=== PATIENT | female | born 1990 | race Caucasian/White ===

== ENCOUNTER 2017-09-23 11:35 | Emergency (ER) | payer BC | END 2017-09-23 14:32 | disposition left against medical advice (07) | LOC: UCCORT 11:35 | DX: H57.12 Ocular pain, left eye (principal); Z53.21 Procedure and treatment not carried out due to patient leaving prior to being seen by health care provider ==

== ENCOUNTER 2017-11-26 09:40 | Emergency (ER) | payer BC ==
[2017-11-26 10:04] VITALS: BP 151/92
--- NOTE | 2017-11-26 10:39 | RAD ---
HISTORY: Worsening left foot pain COMPARISONS: None VIEWS: 3, Frontal, lateral, and oblique views of the left foot FINDINGS: BONE DENSITY: Normal. BONES: There is no displaced fracture. There is a small calcaneal enthesophyte. There is no appreciable erosion or periosteal reaction. JOINTS: There is no arthropathy. ALIGNMENT: There is no dislocation. SOFT TISSUES: Unremarkable. OTHER FINDINGS: None. IMPRESSION: NO ACUTE OSSEOUS INJURY. IF SYMPTOMS PERSIST, RECOMMEND REPEAT IMAGING.
--- NOTE | 2017-11-26 10:39 | UC ---
Lower Extremity/Ankle HPI - HPI Summary HPI Summary: Pt c/e left foot pain that has been worsening over the last 7 days. 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 Pain radiates from left great toe to anterior knee. - History of Current Complaint Chief Complaint: UCGeneralIllness Stated Complaint: LEFT FOOT Time Seen by Provider: 11/26/17 10:08 Hx Obtained From: Patient Hx Last Menstrual Period: 11/16/17 ?: No Onset/Duration: Gradual Onset, Lasting Days, Worse Since - onset Severity Initially: Mild Severity Currently: Mild Pain Intensity: 3 Aggravating Factor(s): Standing, Ambulation Alleviating Factor(s): Rest Able to Bear Weight: Yes - Risk Factors Gout Risk Factors: Negative DVT Risk Factors: Negative Septic Arthritis Risk Factor: Negative - Allergies/Home Medications Allergies/Adverse Reactions: Allergies Allergy/AdvReac Type Severity Reaction Status Date / Time Penicillins Allergy Intermediate Hives Verified 11/26/17 10:04 Home Medications: Home Medications B-Complex with Vitamin C [Vitamin B-Complex with Vit C] 1 each PO DAILY [History Confirmed 11/26/17] PMH/Surg Hx/FS Hx/Imm Hx Previously Healthy: Yes - Surgical History Surgical History: None - Family History Known Family History: Positive: Cardiac Disease - Social History Occupation: Employed Full-time Lives: With Family Alcohol Use: None Substance Use Type: None Smoking Status (MU): Never Smoked Tobacco Have You Smoked in the Last Year: No - Immunization History Most Recent Influenza Vaccination: Fall 2013 Review of Systems Constitutional: Negative Skin: Negative Eyes: Negative ENT: Negative Respiratory: Negative Cardiovascular: Negative Gastrointestinal: Negative Genitourinary: Negative Motor: Negative Neurovascular: Negative Musculoskeletal: Myalgia - left foot and lower extremity Neurological: Negative Psychological: Negative Is Patient Immunocompromised?: No All Other Systems Reviewed And Are Negative: Yes Physical Exam Triage Information Reviewed: Yes Appearance: Well-Appearing Vital Signs: Initial Vital Signs Temp 98.7 F 11/26/17 09:59 Pulse 100 11/26/17 09:59 Resp 20 11/26/17 09:59 BP 151/92 11/26/17 09:59 Pulse Ox 99 11/26/17 09:59 Vital Signs Reviewed: Yes Eye Exam: Normal Eyes: Positive: Other: - pt is legally blind, has double pupils ENT: Positive: Hearing grossly normal Neck exam: Normal Respiratory Exam: Normal Musculoskeletal Exam: Normal Musculoskeletal: Positive: Other: - tenderness at left great toe joint Neurological Exam: Normal Psychological Exam: Normal Skin Exam: Normal Diagnostics - Radiology No standard instances Radiology Interpretation Completed By: Radiologist - FINDINGS: BONE DENSITY: Normal. BONES: There is no displaced fracture. There is a small calcaneal enthesophyte. There is no appreciable erosion or periosteal reaction. JOINTS: There is no arthropathy. ALIGNMENT: There is no dislocation. SOFT TISSUES: Unremarkable. OTHER FINDINGS: None. IMPRESSION: NO ACUTE OSSEOUS INJURY. IF SYMPTOMS PERSIST, RECOMMEND REPEAT IMAGING. Lower Extremity Course/Dx - Course Course Of Treatment: FINDINGS: BONE DENSITY: Normal. BONES: There is no displaced fracture. There is a small calcaneal enthesophyte. There is. no appreciable erosion or periosteal reaction. JOINTS: There is no arthropathy. ALIGNMENT: There is no dislocation. SOFT TISSUES: Unremarkable. OTHER FINDINGS : None. IMPRESSION: NO ACUTE OSSEOUS INJURY. IF SYMPTOMS PERSIST, RECOMMEND REPEAT IMAGING. - Differential Dx/Diagnosis Differential Diagnosis/HQI/PQRI: Sprain, Strain, Tendonitis Provider Diagnoses: left foot strain. left foot tendonitis Discharge - Sign-Out/Discharge Documenting (check all that apply): Discharge - Discharge Plan Condition: Stable Disposition: HOME Patient Education Materials: Tendinitis (ED), R.I.C.E. Treatment (ED) Referrals: Fang Messina PA [Primary Care Provider] - If Needed Savage Romero MD [Medical Doctor] - If Needed - Billing Disposition and Condition Condition: STABLE Disposition: HOME
== END 2017-11-26 10:53 | disposition home or self-care (01) ==
LOC: UCCORT 09:40
DX: S96.912A Strain of unspecified muscle and tendon at ankle and foot level, left foot, initial encounter (principal); X50.3XXA Overexertion from repetitive movements, initial encounter; Y93.75 Activity, martial arts; Y92.9 Unspecified place or not applicable; M77.52 Other enthesopathy of left foot and ankle; Z88.0 Allergy status to penicillin
CPT/HCPCS: 99211; G0463

== ENCOUNTER 2018-02-13 15:49 | Emergency (ER) | payer BC ==
[2018-02-13 16:16] VITALS: BP 115/74
--- NOTE | 2018-02-13 16:45 | UC ---
Ear Complaint HPI - HPI Summary HPI Summary: right ear feels congested and needs to "pop". has been using dimetapp with out relief----(cannot use flonase---or nasal sprays) - History of Current Complaint Chief Complaint: UCEar Stated Complaint: EAR PAIN Time Seen by Provider: 02/13/18 16:38 Hx Obtained From: Patient Hx Last Menstrual Period: 01/24/18 ?: No Onset/Duration: Sudden Onset, Lasting Days - O7, Still Present Pain Intensity: 0 Pain Scale Used: 0-10 Numeric Aggravating Factors: Nothing Alleviating Factors: Nothing - Allergies/Home Medications Allergies/Adverse Reactions: Allergies Allergy/AdvReac Type Severity Reaction Status Date / Time Penicillins Allergy Intermediate Hives Verified 11/26/17 10:04 PMH/Surg Hx/FS Hx/Imm Hx Previously Healthy: No - hearing loss (uses hearing aids) Neurological History: Migraine - Surgical History Surgical History: None - Family History Known Family History: Positive: Cardiac Disease - Social History Occupation: Employed Full-time Lives: With Family Alcohol Use: None Substance Use Type: None Smoking Status (MU): Never Smoked Tobacco Have You Smoked in the Last Year: No - Immunization History Most Recent Influenza Vaccination: Fall 2013 Review of Systems Constitutional: Negative Skin: Negative Eyes: Negative ENT: Negative, Ear Ache - right ear "clogged" Respiratory: Negative Cardiovascular: Negative Gastrointestinal: Negative Genitourinary: Negative Motor: Negative Neurovascular: Negative Musculoskeletal: Negative Neurological: Negative Psychological: Negative Is Patient Immunocompromised?: No All Other Systems Reviewed And Are Negative: Yes Physical Exam Triage Information Reviewed: Yes Appearance: Well-Appearing, No Pain Distress, Well-Nourished Vital Signs: Initial Vital Signs Temp 99.1 F 02/13/18 16:09 Pulse 80 02/13/18 16:09 Resp 17 02/13/18 16:09 BP 115/74 02/13/18 16:09 Pulse Ox 100 02/13/18 16:09 Vital Signs Reviewed: Yes Eye Exam: Normal Eyes: Positive: Conjunctiva Clear ENT Exam: Normal ENT: Positive: Normal ENT inspection, Hearing grossly normal, Pharynx normal, TMs normal - Will, Uvula midline. Negative: Nasal congestion, Nasal drainage, Tonsillar swelling, Tonsillar exudate, Trismus, Muffled voice, Hoarse voice, Dental tenderness, Sinus tenderness Dental Exam: Normal Neck exam: Normal Neck: Positive: Supple, Nontender Respiratory Exam: Normal Respiratory: Positive: Chest non-tender, No respiratory distress, No accessory muscle use Cardiovascular Exam: Normal Cardiovascular: Positive: RRR, Pulses Normal, Brisk Capillary Refill Musculoskeletal Exam: Normal Musculoskeletal: Positive: Strength Intact, ROM Intact, No Edema Neurological Exam: Normal Neurological: Positive: Alert, Muscle Tone Normal Psychological Exam: Normal Skin Exam: Normal Ear Complaint Course/Dx - Course Course Of Treatment: stop Dimetapp, and use Sudafed, follow with primary care provider as needed - Differential Dx/Diagnosis Provider Diagnoses: Right eustachian tube dysfunction Discharge - Sign-Out/Discharge Documenting (check all that apply): Discharge/Admit/Transfer - Discharge Plan Condition: Stable Disposition: HOME Patient Education Materials: Pseudoephedrine (By mouth), Barotitis Media (ED) Referrals: Fang Messina PA [Primary Care Provider] - If Needed - Billing Disposition and Condition Condition: STABLE Disposition: Home
== END 2018-02-13 16:51 | disposition home or self-care (01) ==
LOC: UCCORT 15:49
DX: H69.81 Other specified disorders of Eustachian tube, right ear (principal); Z88.0 Allergy status to penicillin
CPT/HCPCS: 99211; G0463